=== PATIENT | female | born 1985 | race Caucasian/White ===

== ENCOUNTER 2017-01-21 14:29 | Emergency (ER) | payer OTHER ==
[2017-01-21] MEDS ORDERED: Ketorolac Tromethamine 60 MG/2 ML VIAL ONE (15:18)
== END 2017-01-21 15:25 | disposition home or self-care (01) ==
LOC: MADERS 14:29
DX: K02.9 Dental caries, unspecified (principal); E03.9 Hypothyroidism, unspecified; F31.9 Bipolar disorder, unspecified; F41.9 Anxiety disorder, unspecified; Z87.891 Personal history of nicotine dependence; Z79.899 Other long term (current) drug therapy
CPT/HCPCS: 96372; J1885

== ENCOUNTER 2017-05-18 16:43 | Emergency (ER) | payer OTHER ==
[2017-05-18] MEDS ORDERED: Lorazepam 1 MG TAB ONE (18:30)
== END 2017-05-18 18:35 | disposition home or self-care (01) ==
LOC: MADERS 16:43
DX: F43.0 Acute stress reaction (principal); E03.9 Hypothyroidism, unspecified; F41.9 Anxiety disorder, unspecified; F31.9 Bipolar disorder, unspecified; Z87.891 Personal history of nicotine dependence; Z79.899 Other long term (current) drug therapy
CPT/HCPCS: 99284

== ENCOUNTER 2017-12-16 13:41 | Emergency (ER) | payer OTHER ==
[2017-12-16] MEDS ORDERED: HYDROcodone/Acetaminophen 10/325 mg Tablet ONE (14:58)
[2017-12-16] MEDS ORDERED: Clindamycin 150 MG CAP ONE (14:58)
[2017-12-16] MEDS ORDERED: cefTRIAXone\\ROCEPHIN 1 GM VIAL ONE (14:58)
[2017-12-16] MEDS ORDERED: Lidocaine 1% 20 ML MDV ONE (14:58)
[2017-12-16] MEDS ORDERED: Acetaminophen 325 MG TAB ONE (14:58)
== END 2017-12-16 15:30 | disposition home or self-care (01) ==
LOC: MADERS 13:41
DX: N99.820 Postprocedural hemorrhage of a genitourinary system organ or structure following a genitourinary system procedure (principal); E03.9 Hypothyroidism, unspecified; F41.9 Anxiety disorder, unspecified; F31.9 Bipolar disorder, unspecified; Z87.891 Personal history of nicotine dependence
CPT/HCPCS: 87070; 87077; 96372; J0696; J2001

== ENCOUNTER 2018-01-17 14:39 | Emergency (ER) | payer OTHER ==
[2018-01-17] MEDS ORDERED: AMOXicillin 250 MG CAP ONE (15:52)
[2018-01-17] MEDS ORDERED: Phenergan/Codeine 10-6.25mg/5ml UDCUP ONE (15:52)
[2018-01-17] MEDS ORDERED: Naproxen 500 MG TAB ONE (15:52)
[2018-01-17] MEDS ORDERED: HYDROcodone/Acetaminophen 10/325 mg Tablet ONE (15:52)
== END 2018-01-17 16:15 | disposition home or self-care (01) ==
LOC: MADERS 14:39
DX: J02.9 Acute pharyngitis, unspecified (principal); E03.9 Hypothyroidism, unspecified; F31.9 Bipolar disorder, unspecified; F41.9 Anxiety disorder, unspecified; Z87.891 Personal history of nicotine dependence; Z85.43 Personal history of malignant neoplasm of ovary; Z79.899 Other long term (current) drug therapy
CPT/HCPCS: 87081; 87430; 99283

== ENCOUNTER 2018-02-11 10:42 | Emergency (ER) | payer OTHER ==
[2018-02-11] MEDS ORDERED: Dexamethasone 4 MG TAB ONE (11:10)
== END 2018-02-11 11:28 | disposition home or self-care (01) ==
LOC: MADERS 10:42
DX: S46.911A Strain of unspecified muscle, fascia and tendon at shoulder and upper arm level, right arm, initial encounter (principal); M77.9 Enthesopathy, unspecified; E78.5 Hyperlipidemia, unspecified; F31.9 Bipolar disorder, unspecified; F41.9 Anxiety disorder, unspecified; Z87.891 Personal history of nicotine dependence; Z79.899 Other long term (current) drug therapy; W19.XXXA Unspecified fall, initial encounter
CPT/HCPCS: 99283; J8540

== ENCOUNTER 2018-02-18 10:50 | Emergency (ER) | payer OTHER ==
[~2018-02-18 10:50] MED LIST: Sodium Chloride Irrig Solution 250 ML BOT ONE
[2018-02-18] MEDS ORDERED: HYDROcodone/Acetaminophen 10/325 mg Tablet ONE (11:45)
[2018-02-18] MEDS ORDERED: Lidocaine 1% 20 ML MDV ONE (11:50)
[2018-02-18] MEDS ORDERED: Ondansetron ODT 4 MG TAB ONE (11:59)
[2018-02-18] MEDS ORDERED: Triple Antibiotic Oint 1 GM Packet ONE (12:00)
== END 2018-02-18 12:20 | disposition home or self-care (01) ==
LOC: MADERS 10:50
DX: S61.411A Laceration without foreign body of right hand, initial encounter (principal); E03.9 Hypothyroidism, unspecified; Z87.891 Personal history of nicotine dependence; F31.9 Bipolar disorder, unspecified; F41.9 Anxiety disorder, unspecified; Z79.899 Other long term (current) drug therapy; W26.0XXA Contact with knife, initial encounter
CPT/HCPCS: 12001; J2001; Q0162

== ENCOUNTER 2018-03-11 12:33 | Emergency (ER) | payer OTHER ==
[2018-03-11] MEDS ORDERED: Benzonatate 100 MG CAP ONE (14:13)
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
== END 2018-03-11 15:00 | disposition home or self-care (01) ==
LOC: MADERS 12:33
DX: J06.9 Acute upper respiratory infection, unspecified (principal); F31.9 Bipolar disorder, unspecified; G43.909 Migraine, unspecified, not intractable, without status migrainosus; E03.9 Hypothyroidism, unspecified; F41.9 Anxiety disorder, unspecified; Z87.891 Personal history of nicotine dependence; Z79.899 Other long term (current) drug therapy
CPT/HCPCS: 71046; 87081; 87430; 87804; 93005

== ENCOUNTER 2018-04-26 22:04 | Emergency (ER) | payer OTHER ==
[~2018-04-26 22:04] MED LIST changes: +Sodium Chloride 0.9% 1,000 ML BAG ONE; -Sodium Chloride Irrig Solution 250 ML BOT ONE
[2018-04-26] MEDS ORDERED: Morphine 4 MG/ML VIAL ONE (22:47)
[2018-04-26] MEDS ORDERED: Ondansetron HCl/PF 4 MG/2 ML Vial ONE (22:48)
[2018-04-26 22:52] LABS: Bilirubin Negative (Negative); Blood, Urine Negative (Negative); Glucose, Urine (Dipstick) Negative (Negative); Leukocyte Negative (Negative); Nitrite Negative (Negative); Protein, Urine (Dipstick) Negative (Neg-Trace); Urobilinogen 0.2 mg/dL (0.2-1.0); pH, Urine 5.5 (5.0-9.0)
[2018-04-26 22:56] LABS: #Basophils 0.1 thou/uL (0.0-0.2); #Eosinphils 0.1 thou/uL (0.0-0.7); #Lymphocytes 2.5 thou/uL (1.20-3.40); #Monocytes 0.7 thou/uL (0.11-0.59); #Neutrophils 5.3 thou/uL (1.40-6.50); %Eosinophils 1.6 % (0.0-10.0); %Lymphocytes 28.2 % (21.0-51.0); %Monocytes 8.4 % (0.0-10.0); %Neutrophils 60.9 % (42.0-75.0); Hemoglobin 12.1 g/dL (12.0-16.0); Mean Corpuscular HGB CONC 33.2 g/dL (32.0-36.0); Mean Corpuscular Hemoglobin 26.8 pg (27.0-31.0); Mean Corpuscular Volume 80.8 fl (81.0-99.0); Mean Platelet Volume 10.1 fL (7.4-10.4); Platelet Count 161 thou/uL (130-400); RBC Distribution Width 13.9 % (11.5-14.5); White Blood Cell (WBC) Count 8.7 thou/uL (4.8-10.8)
[2018-04-26 23:09] LABS: Clarity Hazy (Clear); Specific Gravity, Urine 1.032 (1.002-1.036)
[2018-04-26 23:10] LABS: Pregnancy Test - Urine (BHCG) Negative (Negative); Pregu Control Background? CLEAR/WHITE (CLR/WHITE); Pregu Control Bar Appear? YES (CONTROL BAR); Specific Gravity 1.032 (1.002-1.036)
[2018-04-26 23:11] LABS: ALT (SGPT) 53 U/L (8-55); AST (SGOT) 25 U/L (5-34); Albumin 3.6 g/dL (3.5-5.0); Alkaline Phosphatase 74 U/L (40-150); Anion Gap 12 mmol/L (10-20); BUN (Urea Nitrogen) 15 mg/dL (7.0-18.7); Bilirubin, Total 0.3 mg/dL (0.2-1.2); Calc. Creatinine Clearance 0 mL/min (70-130); Calcium 8.7 mg/dL (7.8-10.44); Carbon Dioxide 23 mmol/L (22-29); Chloride 108 mmol/L (98-107); Estimated GFR-MDRD Greater than 90; Glucose 88 mg/dL (70-105); Lipase 19 U/L (8-78); Potassium 3.8 mmol/L (3.5-5.1); Protein, Total 5.6 g/dL (6.0-8.3); Sodium 139 mmol/L (136-145)
--- NOTE | 2018-04-26 23:46 | CT ---
CT ABDOMEN AND PELVIS 04/26/18 COMPARISON: 11/24/16 HISTORY: Pain. TECHNIQUE: Serial axial CT imaging at 5 mm intervals from lung bases through pubic symphysis without contrast. C oronal reformatted imaging obtained. FINDINGS: Lack of contrast limits assessment of the viscera, bowel, vascular structures and for lymphadenopathy . Imaged lung bases are unremarkable. No free intraperitoneal air is noted. Cholecystectomy clips are noted within the gallbladder fossa. The liver, spleen, pancreas, and adrenal glands appear grossly u nremarkable. No hydronephrosis or evidence of obstructive uropathy is appreciated on either side. Faizan tral hernia mesh noted in the midline abdomen. No evidence for bowel obstruction or focal area of bow el inflammatory change. Osseous structures demonstrate no acute findings. IMPRESSION: No acute findings. POS: [facility]
== END 2018-04-27 00:15 | disposition home or self-care (01) ==
LOC: MADERS 22:04
DX: R30.0 Dysuria (principal); R10.9 Unspecified abdominal pain; F31.9 Bipolar disorder, unspecified; G43.909 Migraine, unspecified, not intractable, without status migrainosus; E03.9 Hypothyroidism, unspecified; F41.9 Anxiety disorder, unspecified; Z87.891 Personal history of nicotine dependence; Z79.899 Other long term (current) drug therapy
CPT/HCPCS: 36415; 74176; 80053; 81003; 81025; 83690; 85025; 87077; 87086; 96361; 96374; 96375; J2270; J2405; J7050

== ENCOUNTER 2018-08-06 12:07 | Emergency (ER) | payer OTHER ==
[2018-08-06] MEDS ORDERED: Cyclobenzaprine 10 MG TAB ONE (12:45)
[2018-08-06] MEDS ORDERED: Ketorolac Tromethamine 30 MG/ML VIAL ONE (12:45)
[2018-08-06] MEDS ORDERED: Promethazine HCl 25 MG/ML VIAL ONE (12:45)
== END 2018-08-06 13:42 | disposition home or self-care (01) ==
LOC: MADERS 12:07
DX: R51 Headache (principal); F31.9 Bipolar disorder, unspecified; G43.909 Migraine, unspecified, not intractable, without status migrainosus; E03.9 Hypothyroidism, unspecified; F41.9 Anxiety disorder, unspecified; Z87.891 Personal history of nicotine dependence; Z79.899 Other long term (current) drug therapy
CPT/HCPCS: 96365; 96375; J1885; J2550; J7050

== ENCOUNTER 2018-08-31 14:47 | Emergency (ER) | payer OTHER ==
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
[2018-08-31] MEDS ORDERED: HYDROcodone/Acetaminophen 5/325 mg Tablet ONE (16:08)
== END 2018-08-31 16:10 | disposition home or self-care (01) ==
LOC: MADERS 14:47
DX: S56.911A Strain of unspecified muscles, fascia and tendons at forearm level, right arm, initial encounter (principal); S70.01XA Contusion of right hip, initial encounter; E03.9 Hypothyroidism, unspecified; F41.9 Anxiety disorder, unspecified; F31.9 Bipolar disorder, unspecified; Z87.891 Personal history of nicotine dependence; Z79.899 Other long term (current) drug therapy; V49.9XXA Car occupant (driver) (passenger) injured in unspecified traffic accident, initial encounter

== ENCOUNTER 2018-10-22 09:52 | Emergency (ER) | payer OTHER ==
[2018-10-22 10:49] LABS: Bilirubin Negative (Negative); Blood, Urine Negative (Negative); Clarity Clear (Clear); Glucose, Urine (Dipstick) Negative (Negative); Leukocyte Trace (Negative); Nitrite Negative (Negative); Protein, Urine (Dipstick) Negative (Neg-Trace); RBC/HPF 0-3 HPF (0-3); WBC/HPF 0-3 HPF (0-3); pH, Urine 7.5 (5.0-9.0)
[2018-10-22 10:50] LABS: Bacteria/HPF Rare-Few HPF (None Seen)
[2018-10-22 10:54] LABS: Pregnancy Test - Urine (BHCG) Negative (Negative)
[2018-10-22 10:57] LABS: Pregu Control Background? CLEAR/WHITE (CLR/WHITE); Pregu Control Bar Appear? YES (CONTROL BAR)
[2018-10-22] MEDS ORDERED: HYDROcodone/Acetaminophen 5/325 mg Tablet ONE (11:08)
[2018-10-22] MEDS ORDERED: Ondansetron ODT 4 MG TAB ONE (11:08)
[2018-10-22 11:26] LABS: #Eosinphils 0.1 thou/uL (0.0-0.7); #Lymphocytes 1.9 thou/uL (1.20-3.40); #Monocytes 0.6 thou/uL (0.11-0.59); #Neutrophils 4.2 thou/uL (1.40-6.50); %Basophils 0.7 % (0.0-1.0); %Lymphocytes 27.8 % (21.0-51.0); %Monocytes 9.2 % (0.0-10.0); %Neutrophils 61.3 % (42.0-75.0); Hemoglobin 14.4 g/dL (12.0-16.0); Mean Corpuscular Hemoglobin 27.9 pg (27.0-31.0); Mean Corpuscular Volume 87.2 fL (78.0-98.0); Mean Platelet Volume 11.2 fL (7.4-10.4); Platelet Count 185 thou/uL (130-400); RBC Distribution Width 12.1 % (11.5-14.5); Red Blood Cell (RBC) Count 5.17 mill/uL (4.20-5.40); White Blood Cell (WBC) Count 6.9 thou/uL (4.8-10.8)
[2018-10-22 11:38] LABS: ALT (SGPT) 15 U/L (8-55); AST (SGOT) 14 U/L (5-34); Albumin 4.5 g/dL (3.5-5.0); Alkaline Phosphatase 54 U/L (40-150); Anion Gap 14 mmol/L (10-20); BUN (Urea Nitrogen) 12 mg/dL (7.0-18.7); Calc. Creatinine Clearance 0 mL/min (70-130); Calcium 9.7 mg/dL (7.8-10.44); Carbon Dioxide 17 mmol/L (22-29); Chloride 113 mmol/L (98-107); Estimated GFR-MDRD Greater than 90; Globulin 2.9 g/dL (2.4-3.5); Glucose 92 mg/dL (70-105); Lipase 19 U/L (8-78); Potassium 3.7 mmol/L (3.5-5.1); Protein, Total 7.4 g/dL (6.0-8.3); Sodium 140 mmol/L (136-145)
[2018-10-22] MEDS ORDERED: Iopamidol 370 76% 100 ML VIAL ONE (12:08)
--- NOTE | 2018-10-22 13:17 | CT ---
CT ABDOMEN WITH CONTRAST: CT PELVIS WITH CONTRAST: HISTORY: Lower abdominal pain. Nausea. Suprapubic pain. COMPARISON: 04/26/2018 and 11/24/2016 FINDINGS: ABDOMEN: The lung bases are clear. Normal heart size. The visualized aorta has a normal caliber. The portal vein is patent. The gallb ladder is surgically absent. The liver, spleen, pancreas, and adrenal glands have appropriate enhanc ement. No gastrohepatic, retrocrural, or periportal lymphadenopathy. No mesenteric mass, lymphadenopathy, free air, or free fluid. There appears to be repair of a previo us ventral abdominal wall hernia. Symmetric enhancement of the kidneys. Bilaterally, no obstructive uropathy. Limited evaluation of the alimentary canal by lack of oral contrast. The gastric mucosa, the duodenu m, and multiple normal caliber small bowel loops are identified. The ileocecal junction is normal. The appendix appears to be surgically absent. No evidence of colonic distention. Occasional diverti culum. No evidence of colonic obstruction. No evidence of colonic inflammation. No evidence of div erticulitis. PELVIS: The uterus and adnexal structures are unremarkable. There is slight asymmetric enhancement of the left adnexa with respect to the contralateral side. Consider pelvic ultrasound if the patient is experiencing left adnexal pain. Unremarkable urinary bladder. No pelvic mass, lymphadenopathy, free air, or free fluid. No lytic or blastic lesions in the osseous structures. IMPRESSION: 1. No definite acute abnormality in the abdomen or pelvis. 2. Asymmetric enhancement involving the left adnexa, which is nonspecific. If there is concern, a p elvic ultrasound can be performed. POS: [facility]
== END 2018-10-22 13:18 | disposition home or self-care (01) ==
LOC: MADERS 09:52
DX: R10.31 Right lower quadrant pain (principal); R10.32 Left lower quadrant pain; F31.9 Bipolar disorder, unspecified; G43.909 Migraine, unspecified, not intractable, without status migrainosus; F41.9 Anxiety disorder, unspecified; Z87.891 Personal history of nicotine dependence; Z79.899 Other long term (current) drug therapy
CPT/HCPCS: 36415; 74177; 80053; 81003; 81015; 81025; 83690; 85025; 87086; Q0162

== ENCOUNTER 2019-03-27 08:26 | Emergency (ER) | payer OTHER | END 2019-03-27 08:53 | disposition home or self-care (01) | LOC: MADERS 08:26 | DX: S46.812A Strain of other muscles, fascia and tendons at shoulder and upper arm level, left arm, initial encounter (principal); M62.830 Muscle spasm of back; G89.29 Other chronic pain; F32.9 Major depressive disorder, single episode, unspecified; Z87.891 Personal history of nicotine dependence; Z79.899 Other long term (current) drug therapy; X58.XXXA Exposure to other specified factors, initial encounter | CPT/HCPCS: 99281 ==

== ENCOUNTER 2019-09-08 13:45 | Emergency (ER) | payer OTHER ==
[2019-09-08] MEDS ORDERED: Ondansetron PF 4 MG/2 ML Vial ONE ×2 (14:27→18:20)
[2019-09-08 14:49] LABS: #Lymphocytes 0.2 thou/uL (1.20-3.40); #Monocytes 0.3 thou/uL (0.11-0.59); #Neutrophils 10.2 thou/uL (1.40-6.50); %Basophils 0.2 % (0.0-1.0); %Lymphocytes 2.2 % (21.0-51.0); %Monocytes 2.6 % (0.0-10.0); Hemoglobin 14.4 g/dL (12.0-16.0); Mean Corpuscular HGB CONC 31.1 g/dL (32.0-36.0); Mean Corpuscular Hemoglobin 26.7 pg (27.0-31.0); Mean Corpuscular Volume 85.8 fL (78.0-98.0); Platelet Count 164 thou/uL (130-400); RBC Distribution Width 13.1 % (11.5-14.5); Red Blood Cell (RBC) Count 5.39 mill/uL (4.20-5.40); White Blood Cell (WBC) Count 10.7 thou/uL (4.8-10.8)
[2019-09-08 14:55] LABS: BHCG - Serum Negative (NEGATIVE); Pregs Control Background? CLEAR/WHITE (CLR/WHITE); Pregs Control Bar Appear? YES (CONTROL BAR)
[2019-09-08] MEDS ORDERED: Promethazine HCl 25 MG/ML VIAL ONE (15:06)
[2019-09-08 15:07] LABS: ALT (SGPT) 16 U/L (8-55); AST (SGOT) 14 U/L (5-34); Albumin 4.5 g/dL (3.5-5.0); Alkaline Phosphatase 44 U/L (40-110); Anion Gap 10 mmol/L (10-20); BUN (Urea Nitrogen) 20 mg/dL (7.0-18.7); Bilirubin, Total 0.7 mg/dL (0.2-1.2); CK (CPK) 71 U/L (29-168); Calc. Creatinine Clearance 0 mL/min (70-130); Calcium 9.3 mg/dL (7.8-10.44); Carbon Dioxide 24 mmol/L (22-29); Chloride 109 mmol/L (98-107); Estimated GFR-MDRD 89; Globulin 2.9 g/dL (2.4-3.5); Glucose 135 mg/dL (70-105); Potassium 3.4 mmol/L (3.5-5.1); Protein, Total 7.4 g/dL (6.0-8.3); Sodium 140 mmol/L (136-145)
[2019-09-08 15:12] LABS: Bilirubin Negative (Negative); Blood, Urine Trace (Negative); Glucose, Urine (Dipstick) Negative (Negative); Leukocyte Trace (Negative); Nitrite Negative (Negative); Protein, Urine (Dipstick) Negative (Neg-Trace); Urobilinogen 0.2 mg/dL (Less than 2)
[2019-09-08 15:13] LABS: Clarity Hazy (Clear)
[2019-09-08 15:17] LABS: Bacteria/HPF Rare-Few HPF (None Seen); Mucous/LPF 2+ LPF (<2+); RBC/HPF 0-3 HPF (0-3); Sperm/HPF Rare HPF (None Seen)
[2019-09-08 15:18] LABS: Pregnancy Test - Urine (BHCG) Negative (Negative); Pregu Control Background? CLEAR/WHITE (CLR/WHITE); Pregu Control Bar Appear? YES (CONTROL BAR); Specific Gravity 1.025 (1.002-1.036)
[2019-09-08] MEDS ORDERED: Ciprofloxacin 500 MG TAB ONE (15:41)
[2019-09-08] MEDS ORDERED: Diphenoxylate HCl/Atropine Tablet ONE (17:34)
== END 2019-09-08 18:53 | disposition home or self-care (01) ==
LOC: MADERS 13:45
DX: A05.9 Bacterial foodborne intoxication, unspecified (principal); A09 Infectious gastroenteritis and colitis, unspecified; E03.9 Hypothyroidism, unspecified; F32.9 Major depressive disorder, single episode, unspecified; G43.909 Migraine, unspecified, not intractable, without status migrainosus; F31.9 Bipolar disorder, unspecified; F41.9 Anxiety disorder, unspecified; Z85.43 Personal history of malignant neoplasm of ovary; Z87.891 Personal history of nicotine dependence
CPT/HCPCS: 36415; 80053; 81003; 81015; 81025; 82150; 82550; 83605; 84703; 85025; 87040; 87045; 87046; 87086; 87328; 87329; 87427; 87449; 96361; 96374; 96375; 96376; J2405; J2550; J7050

== ENCOUNTER 2019-12-30 12:00 | Emergency (ER) | payer OTHER ==
[2019-12-30 12:33] LABS: Bilirubin Negative (Negative); Blood, Urine Negative (Negative); Clarity Clear (Clear); Glucose, Urine (Dipstick) Negative (Negative); Leukocyte Negative (Negative); Nitrite Negative (Negative); Protein, Urine (Dipstick) Negative (Neg-Trace); Urobilinogen 0.2 mg/dL (Less than 2)
[2019-12-30 12:34] LABS: Pregnancy Test - Urine (BHCG) Negative (Negative); Pregu Control Bar Appear? YES (CONTROL BAR)
[2019-12-30 12:35] LABS: Pregu Control Background? CLEAR/WHITE (CLR/WHITE)
[2019-12-30] MEDS ORDERED: Acetaminophen 500 MG TAB ONE (12:47)
--- NOTE | 2019-12-30 14:13 | CT ---
EXAM: ABDOMEN AND PELVIC CT SCAN WITHOUT IV CONTRAST: 12/30/19 HISTORY: Right flank pain. COMPARISON: 10/22/18. FINDINGS: Possible very tiny 0.2 cm nodule in the right lower chest not definitely seen on prior study but it i s so small it may not have been visualized. Status post cholecystectomy without ductal dilatation. Vi sualized pancreas, spleen, adrenal glands are unremarkable as evaluated without IV contrast. No evide nce for renal calculus or acute obstruction. Postop changes in the region of the appendix. Unremar kable uterus and adnexa as visualized. No abscess or abnormal fluid collection. IMPRESSION: Unremarkable abdomen and pelvic CT scan. No renal calculus or acute obstruction. Possible tiny 0.2 cm nodule in the right lower lobe of the lung. POS: [facility]
== END 2019-12-30 14:29 | disposition home or self-care (01) ==
LOC: MADERS 12:00
DX: R31.9 Hematuria, unspecified (principal); R10.30 Lower abdominal pain, unspecified; F31.9 Bipolar disorder, unspecified; E03.9 Hypothyroidism, unspecified; Z85.43 Personal history of malignant neoplasm of ovary; F41.9 Anxiety disorder, unspecified; Z87.891 Personal history of nicotine dependence
CPT/HCPCS: 74176; 81003; 81025

== ENCOUNTER 2020-01-29 16:59 | Emergency (ER) | payer OTHER ==
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
== END 2020-01-29 18:15 | disposition home or self-care (01) ==
LOC: MADERS 16:59
DX: S20.211A Contusion of right front wall of thorax, initial encounter (principal); E03.9 Hypothyroidism, unspecified; F31.9 Bipolar disorder, unspecified; G43.909 Migraine, unspecified, not intractable, without status migrainosus; F41.9 Anxiety disorder, unspecified; Z87.891 Personal history of nicotine dependence; W20.8XXA Other cause of strike by thrown, projected or falling object, initial encounter; Y99.0 Civilian activity done for income or pay
CPT/HCPCS: 71120

== ENCOUNTER 2020-04-10 13:04 | Emergency (ER) | payer OTHER ==
[~2020-04-10 13:04] MED LIST changes: +Iopamidol 370 76% 100 ML VIAL ONE
[2020-04-10] MEDS ORDERED: Ondansetron PF 4 MG/2 ML Vial ONE (13:20)
[2020-04-10] MEDS ORDERED: Morphine 4 MG/ML VIAL ONE ×2 (13:21→14:26)
[2020-04-10 13:36] LABS: #Basophils 0.1 thou/uL (0.0-0.2); #Eosinphils 0.2 thou/uL (0.0-0.7); #Lymphocytes 1.2 thou/uL (1.20-3.40); #Monocytes 0.4 thou/uL (0.11-0.59); #Neutrophils 2.9 thou/uL (1.40-6.50); %Basophils 1.7 % (0.0-1.0); %Eosinophils 3.2 % (0.0-10.0); %Lymphocytes 25.5 % (21.0-51.0); %Monocytes 8.9 % (0.0-10.0); %Neutrophils 60.7 % (42.0-75.0); Hemoglobin 12.8 g/dL (12.0-16.0); Mean Corpuscular HGB CONC 32.5 g/dL (32.0-36.0); Mean Corpuscular Hemoglobin 27.8 pg (27.0-31.0); Mean Corpuscular Volume 85.7 fL (78.0-98.0); Mean Platelet Volume 10.7 fL (7.4-10.4); Platelet Count 190 thou/uL (130-400); RBC Distribution Width 12.3 % (11.5-14.5); Red Blood Cell (RBC) Count 4.62 mill/uL (4.20-5.40); White Blood Cell (WBC) Count 4.7 thou/uL (4.8-10.8)
[2020-04-10 13:42] LABS: BHCG - Serum Negative (NEGATIVE); Pregs Control Background? CLEAR/WHITE (CLR/WHITE); Pregs Control Bar Appear? YES (CONTROL BAR)
[2020-04-10 13:50] LABS: ALT (SGPT) 79 U/L (8-55); AST (SGOT) 58 U/L (5-34); Albumin 4.2 g/dL (3.5-5.0); Alkaline Phosphatase 86 U/L (40-110); Anion Gap 13 mmol/L (10-20); BUN (Urea Nitrogen) 15 mg/dL (7.0-18.7); Bilirubin, Total 0.8 mg/dL (0.2-1.2); Calc. Creatinine Clearance 0 mL/min (70-130); Calcium 9.3 mg/dL (7.8-10.44); Carbon Dioxide 23 mmol/L (22-29); Chloride 107 mmol/L (98-107); Estimated GFR-MDRD Greater than 90; Globulin 2.6 g/dL (2.4-3.5); Glucose 103 mg/dL (70-105); Potassium 3.4 mmol/L (3.5-5.1); Protein, Total 6.8 g/dL (6.0-8.3); Sodium 140 mmol/L (136-145)
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
== END 2020-04-10 15:52 | disposition short-term general hospital (02) ==
LOC: MADERS 13:04
DX: S22.41XA Multiple fractures of ribs, right side, initial encounter for closed fracture (principal); J93.9 Pneumothorax, unspecified; F31.9 Bipolar disorder, unspecified; F41.9 Anxiety disorder, unspecified; Z87.891 Personal history of nicotine dependence; V86.59XA Driver of other special all-terrain or other off-road motor vehicle injured in nontraffic accident, initial encounter
CPT/HCPCS: 70450; 71260; 72125; 74177; 80053; 84703; 85025; 96361; 96374; 96375; 96376; J2270; J2405; J7050; L0120; Q9967

== ENCOUNTER 2020-04-29 14:52 | Outpatient (CLI) | payer OTHER ==
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
== END 2020-04-29 14:53 | disposition home or self-care (01) ==
LOC: MADRAD 14:52
PROVIDERS: ATTEND Family Medicine
DX: M25.551 Pain in right hip (principal); S22.41XS Multiple fractures of ribs, right side, sequela; S27.0XXS Traumatic pneumothorax, sequela; M41.9 Scoliosis, unspecified; V86.99XA Unspecified occupant of other special all-terrain or other off-road motor vehicle injured in nontraffic accident, initial encounter
CPT/HCPCS: 71046; 72100; 72170

== ENCOUNTER 2020-09-01 10:08 | Emergency (ER) | payer OTHER ==
[2020-09-01] MEDS ORDERED: Ondansetron ODT 4 MG TAB ONE (10:17)
[2020-09-02 13:15] LABS: SARS-CoV-2 MS2 Positive; SARS-CoV-2 N Gene Negative; SARS-CoV-2 S Gene Negative; SARS-CoV-2 by NAA Not Detected (NotDetected); SARS-CoV-2 orf1ab Negative
== END 2020-09-01 10:55 | disposition home or self-care (01) ==
LOC: MADERS 10:08
DX: R50.9 Fever, unspecified (principal); R11.2 Nausea with vomiting, unspecified; Z20.828 Contact with and (suspected) exposure to other viral communicable diseases; R10.11 Right upper quadrant pain; G43.909 Migraine, unspecified, not intractable, without status migrainosus; E03.9 Hypothyroidism, unspecified; F41.9 Anxiety disorder, unspecified; F31.9 Bipolar disorder, unspecified; Z85.43 Personal history of malignant neoplasm of ovary; Z87.442 Personal history of urinary calculi; Z87.891 Personal history of nicotine dependence
CPT/HCPCS: 87635; 99283; Q0162; U0003

== ENCOUNTER 2020-10-27 08:02 | Emergency (ER) | payer OTHER ==
[2020-10-27] MEDS ORDERED: Sodium Chloride 0.9% 1,000 ML ONE (08:26)
[2020-10-27] MEDS ORDERED: Morphine 2 MG/ML SYRINGE ONE (08:26)
[2020-10-27] MEDS ORDERED: Ondansetron PF 4 MG/2 ML Vial ONE ×2 (08:26→09:38)
[2020-10-27 08:34] LABS: Bilirubin Negative (Negative); Blood, Urine Negative (Negative); Clarity Clear (Clear); Glucose, Urine (Dipstick) Negative (Negative); Ketone, Urine Negative (Negative); Leukocyte Negative (Negative); Nitrite Negative (Negative); Protein, Urine (Dipstick) Negative (Neg-Trace); Urobilinogen 0.2 mg/dL (Less than 2); pH, Urine 7.5 (5.0-9.0)
[2020-10-27 08:47] LABS: #Eosinphils 0.1 thou/uL (0.0-0.7); #Lymphocytes 1.2 thou/uL (1.20-3.40); #Monocytes 0.6 thou/uL (0.11-0.59); #Neutrophils 5.7 thou/uL (1.40-6.50); %Basophils 0.6 % (0.0-1.0); %Eosinophils 1.3 % (0.0-10.0); %Lymphocytes 15.3 % (21.0-51.0); %Monocytes 7.8 % (0.0-10.0); Hemoglobin 13.4 g/dL (12.0-16.0); Mean Corpuscular HGB CONC 33.5 g/dL (32.0-36.0); Mean Corpuscular Hemoglobin 29.1 pg (27.0-31.0); Mean Corpuscular Volume 86.9 fL (78.0-98.0); Mean Platelet Volume 10.4 fL (7.4-10.4); Platelet Count 165 thou/uL (130-400); RBC Distribution Width 11.6 % (11.5-14.5); Red Blood Cell (RBC) Count 4.62 mill/uL (4.20-5.40); White Blood Cell (WBC) Count 7.6 thou/uL (4.8-10.8)
[2020-10-27 08:56] LABS: BHCG - Serum Negative (NEGATIVE); Pregs Control Background? CLEAR/WHITE (CLR/WHITE); Pregs Control Bar Appear? YES (CONTROL BAR)
[2020-10-27 09:04] LABS: ALT (SGPT) 15 U/L (8-55); AST (SGOT) 18 U/L (5-34); Albumin 4.2 g/dL (3.5-5.0); Alkaline Phosphatase 40 U/L (40-110); Anion Gap 15 mmol/L (10-20); BUN (Urea Nitrogen) 14 mg/dL (7.0-18.7); Bilirubin, Total 0.8 mg/dL (0.2-1.2); Calc. Creatinine Clearance 0 mL/min (70-130); Carbon Dioxide 21 mmol/L (22-29); Chloride 108 mmol/L (98-107); Globulin 2.7 g/dL (2.4-3.5); Glucose 90 mg/dL (70-105); Lipase 43 U/L (8-78); Potassium 3.8 mmol/L (3.5-5.1); Protein, Total 6.9 g/dL (6.0-8.3); Sodium 140 mmol/L (136-145)
[2020-10-27] MEDS ORDERED: cefTRIAXone\\ROCEPHIN 250 MG VIAL ONE (09:19)
[2020-10-27] MEDS ORDERED: Doxycycline 100 MG CAP ONE (09:19)
[2020-10-27] MEDS ORDERED: Sodium Chloride 0.9% 100 ML ONE (09:19)
--- NOTE | 2020-10-27 09:45 | CT ---
CT Stone Protocol: 10/27/2020 9:35 AM HISTORY: Bilateral lower abdominal pain and back pain COMPARISON: 12/30/2019, 04/10/2020, 12/30/2015 TECHNIQUE: Multiple contiguous axial images were obtained and a CT of the abdomen and pelvis without IV contrast . Coronal and sagittal reformats were performed. FINDINGS: This examination is limited for the evaluation of solid organs and vascular structures due to the lac k of intravenous contrast. Lower Chest: Tiny stable 2 mm nodule in the right lung base. Abdomen: Liver: within normal limits. Bile Ducts: Normal caliber. Gallbladder: Removed Pancreas: within normal limits. Spleen: within normal limits. Adrenals: within normal limits. Kidneys: within normal limits. Pelvis: Reproductive Organs: No pelvic masses. Ureters: within normal limits. Bladder: within normal limits. Bowel: Normal caliber. The appendix is not seen and may have been removed. Mesenteric Lymph Nodes: No enlarged mesenteric lymph nodes. Peritoneum: No ascites or free air, no fluid collection. Vessels: Normal caliber aorta Retroperitoneum: within normal limits. Abdominal Wall: There may be mesh in the infraumbilical soft tissues from prior hernia repair. Bones: Unremarkable. IMPRESSION: No evidence of acute intraabdominal or pelvic abnormality.
[2020-10-28 20:57] LABS: Chlamydia by PCR Not Detected (NotDetected); GC by PCR Not Detected (NotDetected)
== END 2020-10-27 10:25 | disposition home or self-care (01) ==
LOC: MADERS 08:02
DX: R10.30 Lower abdominal pain, unspecified (principal); R10.813 Right lower quadrant abdominal tenderness; M54.5 Low back pain; G43.909 Migraine, unspecified, not intractable, without status migrainosus; E03.9 Hypothyroidism, unspecified; Z87.442 Personal history of urinary calculi; Z87.891 Personal history of nicotine dependence
CPT/HCPCS: 74176; 80053; 81003; 83690; 84703; 85025; 87480; 87491; 87510; 87591; 87660; 96365; 96375; 96376; J0696; J2270; J2405; J3490; J7050

== ENCOUNTER 2021-01-25 15:54 | Emergency (ER) | payer OTHER ==
[2021-01-26 01:45] LABS: SARS-CoV-2 PCR by NAA Not Detected (NotDetected)
== END 2021-01-25 17:01 | disposition home or self-care (01) ==
LOC: MADERS 15:54
DX: J06.9 Acute upper respiratory infection, unspecified (principal); A08.4 Viral intestinal infection, unspecified; Z20.822 Contact with and (suspected) exposure to COVID-19; E03.9 Hypothyroidism, unspecified; G43.909 Migraine, unspecified, not intractable, without status migrainosus; Z85.43 Personal history of malignant neoplasm of ovary; Z87.442 Personal history of urinary calculi; Z87.891 Personal history of nicotine dependence
CPT/HCPCS: 87635; 99283; U0003; U0005

== ENCOUNTER 2021-06-21 15:53 | Emergency (ER) | payer OTHER ==
[2021-06-21] MEDS ORDERED: Diazepam 5 MG TAB ONE (18:41)
[2021-06-21] MEDS ORDERED: Albuterol 200 PUFF (6.7GM INHALER) ONE (18:41)
[2021-06-22 13:20] LABS: SARS-CoV-2 PCR by NAA DETECTED (NotDetected)
== END 2021-06-21 18:45 | disposition home or self-care (01) ==
LOC: MADERS 15:53
DX: U07.1 COVID-19 (principal); G43.909 Migraine, unspecified, not intractable, without status migrainosus; E03.9 Hypothyroidism, unspecified; Z85.43 Personal history of malignant neoplasm of ovary; Z87.442 Personal history of urinary calculi; Z87.891 Personal history of nicotine dependence
CPT/HCPCS: 71045; 87804; U0003; U0005

== ENCOUNTER 2022-06-10 09:31 | Emergency (ER) | payer OTHER | END 2022-06-10 11:05 | disposition home or self-care (01) | LOC: MADERS 09:31 | DX: S63.502A Unspecified sprain of left wrist, initial encounter (principal); E03.9 Hypothyroidism, unspecified; W54.1XXA Struck by dog, initial encounter; Z87.891 Personal history of nicotine dependence; Z87.442 Personal history of urinary calculi; Z85.43 Personal history of malignant neoplasm of ovary | CPT/HCPCS: 29125 ==

== ENCOUNTER 2022-11-08 12:30 | Emergency (ER) | payer OTHER ==
[2022-11-08 13:06] LABS: Hemoglobin 12.5 g/dL (12.0-16.0)
[2022-11-08 13:18] LABS: BHCG - Serum Negative (NEGATIVE); Pregs Control Background? CLEAR/WHITE (CLR/WHITE); Pregs Control Bar Appear? YES (CONTROL BAR)
[2022-11-08] MEDS ORDERED: Morphine 4 MG/ML VIAL ONE (13:18)
== END 2022-11-08 13:50 | disposition home or self-care (01) ==
LOC: MADERS 12:30
DX: N93.9 Abnormal uterine and vaginal bleeding, unspecified (principal); E03.9 Hypothyroidism, unspecified; Z87.891 Personal history of nicotine dependence
CPT/HCPCS: 36415; 84703; 85014; 85018; 96372; 99284; J2270

== ENCOUNTER 2024-07-29 07:57 | Emergency (ER) | payer OTHER ==
[2024-07-29] MEDS ORDERED: Dicyclomine 20 MG/2 ML VIAL ONE (08:32)
[2024-07-29] MEDS ORDERED: Ondansetron PF 4 MG/2 ML Vial ONE (08:32)
[2024-07-29] MEDS ORDERED: Ketorolac Tromethamine 30 MG (1 mL) VIAL ONE (08:32)
[2024-07-29] MEDS ORDERED: Lactated Ringer's 1,000 ML ONE (08:33)
[2024-07-29 08:49] LABS: Bilirubin Negative (Negative); Blood, Urine Negative (Negative); Clarity Clear (Clear); Glucose, Urine (Dipstick) Negative (Negative); Ketone, Urine Negative (Negative); Leukocyte Negative (Negative); Nitrite Negative (Negative); Protein, Urine (Dipstick) Negative (Neg-Trace); Specific Gravity, Urine 1.025 (1.005-1.030); Urobilinogen 0.2 mg/dL (Less than 2); pH, Urine 6.5 (5.0-9.0)
[2024-07-29 08:51] LABS: Pregnancy Test - Urine (BHCG) Negative (Negative); Pregu Control Background? CLEAR/WHITE (CLR/WHITE); Pregu Control Bar Appear? YES (CONTROL BAR); Specific Gravity 1.025 (1.002-1.036)
[2024-07-29 08:58] LABS: Bacteria/HPF Rare-Few HPF (None Seen); CAUTI Indications for Culture Pelvic or flank pain; RBC/HPF 0-3 HPF (0-3); Squamous Epithelial 0-3 HPF (0-3); WBC/HPF 0-3 HPF (0-3)
[2024-07-29 08:59] LABS: Urine Culture Reflex No No
[2024-07-29 09:03] LABS: ALT (SGPT) 15 U/L (8-55); AST (SGOT) 17 U/L (5-34); Albumin 3.9 g/dL (3.5-5.0); Alkaline Phosphatase 42 U/L (40-110); Anion Gap 14 mmol/L (10-20); BUN (Urea Nitrogen) 17 mg/dL (7.0-18.7); Bilirubin, Total 0.6 mg/dL (0.2-1.2); Calc. Creatinine Clearance 0 mL/min (70-130); Carbon Dioxide 23 mmol/L (22-29); Chloride 109 mmol/L (98-107); Estimated GFR 113; Globulin 2.7 g/dL (2.4-3.5); Glucose 95 mg/dL (70-105); Lipase 28 U/L (8-78); Potassium 3.8 mmol/L (3.5-5.1); Protein, Total 6.6 g/dL (6.0-8.3); Sodium 142 mmol/L (136-145)
[2024-07-29 09:22] LABS: Band 8 % (5-11); Hematocrit 41.8 % (36.0-47.0); Hemoglobin 13.3 g/dL (12.0-16.0); Hypochromia SLIGHT = 6-15 cells (100X) (0-5/hpf); Lymphocytes 19 % (21-51); MDiff Complete? YES; Mean Corpuscular HGB CONC 31.9 g/dL (32.0-36.0); Mean Corpuscular Hemoglobin 29.1 pg (27.0-31.0); Mean Corpuscular Volume 91.4 fl (78.0-98.0); Mean Platelet Volume 9.6 fL (7.4-10.4); Monocytes 6 % (0-10); Neutrophil 67 % (42-75); Platelet Adequacy Comment Appears Adequate; Platelet Count 159 10x3/uL (130-400); RBC Distribution Width 11.8 % (11.5-14.5); Red Blood Cell (RBC) Count 4.58 mill/uL (4.20-5.40); White Blood Cell (WBC) Count 5.9 10x3/uL (4.8-10.8)
[2024-07-29 09:27] LABS: Prothrombin Time 13.4 sec (12.0-14.7)
[2024-07-29 09:47] LABS: SARS-CoV-2 E Target Negative; SARS-CoV-2 N2 Target Negative; SARS-CoV-2 NAA Rapid Test Not Detected (NotDetected); SARS-CoV-2 RdRP gene Negative
== END 2024-07-29 10:15 | disposition home or self-care (01) ==
LOC: MADERS 07:57
DX: R42 Dizziness and giddiness (principal); R11.2 Nausea with vomiting, unspecified; E03.9 Hypothyroidism, unspecified; Z87.891 Personal history of nicotine dependence
CPT/HCPCS: 71045; 80053; 81001; 81025; 83605; 83690; 85025; 85610; 85730; 87040; 87081; 87430; 87804; 96361; 96372; 96374; 96375; J1885; J2405; J7120; U0002